=== PATIENT | female | born 1960 | race Hispanic/Latino ===

== ENCOUNTER → 2017-08-17 | Day surgery (SDC) | payer MEDICARE, MEDICAID ==
[~2017-08-17] MED LIST: Lactated Ringer's 1,000 ML IV ONE; Lidocaine PF 2% (5 ml) Inj (For Cardiac Arrhy) IV ONE; Propofol 10 mg/ml Inj (20 ML) ONE
[2017-08-17 07:42] VITALS: BMI 33.7
[2017-08-17 09:45] VITALS: TEMP 97.2
[2017-08-17 09:56] VITALS: BP 130/70; PULSE 60; RESP 18; O2SAT 99
== END | disposition home or self-care (01) ==
LOC: H.ENDO 07:22
PROVIDERS: ATTEND Internal Medicine Gastroenterology
DX: Z12.11 Encounter for screening for malignant neoplasm of colon (principal); I10 Essential (primary) hypertension; Z80.0 Family history of malignant neoplasm of digestive organs; K57.30 Diverticulosis of large intestine without perforation or abscess without bleeding
CPT/HCPCS: 45378; J2001; J2704; J7120